=== PATIENT | female | born 1970 | race Caucasian/White ===

== ENCOUNTER → 2016-07-23 | Outpatient (CLI) | payer BC ==
--- NOTE | 2016-07-23 14:24 | DI ---
EXAM: US THYROID LOCATION OF DICTATION: SNELL HISTORY: ITS.REASON: E04.9 GOITER COMPARISON: No prior studies available for comparison. FINDINGS: The right thyroid lobe measures 4.5 x 1.5 x 1.3 cm. The left thyroid lobe measures 4.7 x 1.2 x 1.2 cm. There is normal color flow within the right and left thyroid lobes which are symmetric. Within the superior left thyroid lobe there is a hypoechoic structure with vascularity measuring 0.6 x 0.8 x 0.5 cm. There is a colloid cyst noted within the left thyroid lobe measuring 0.3 x 0.2 x 0.3 cm. No abnormal soft tissues masses or fluid collections are seen around the thyroid. IMPRESSION: 1. There is an 0.8 cm rounded vascular hypoechoic nodule within the left thyroid lobe. Follow-up ultrasound in 1-2 years could be obtained to confirm stability. 2. Colloid cyst suggested within the left thyroid lobe. .
== END ==
LOC: IMA 13:29
PROVIDERS: ATTEND Family Medicine
DX: E04.1 Nontoxic single thyroid nodule (principal); E04.9 Nontoxic goiter, unspecified

== ENCOUNTER → 2016-09-05 | Outpatient (CLI) | payer BC | LOC: LAB 14:50 | PROVIDERS: ATTEND Otolaryngology | DX: E04.2 Nontoxic multinodular goiter (principal) | CPT/HCPCS: 36415; 84443; 86376; 86800 ==